=== PATIENT | female | born 2000 | race Two or more races ===

== ENCOUNTER → 2020-10-19 | Outpatient (CLI) | payer OTHER ==
[~2020-10-19] MED LIST: NORG1TAB37 PO
== END ==
LOC: M LABSMTC 11:47
PROVIDERS: ATTEND Pediatrics
DX: Z20.822 Contact with and (suspected) exposure to COVID-19 (principal)

== ENCOUNTER → 2021-01-05 | Outpatient (CLI) | payer SELFPAY | LOC: M LABSMTC 13:26 | PROVIDERS: ATTEND Pediatrics | DX: Z20.822 Contact with and (suspected) exposure to COVID-19 (principal) ==

== ENCOUNTER → 2023-07-29 | Outpatient (CLI) | payer OTHER | LOC: M WUC 14:55 | PROVIDERS: ATTEND Registered Nurse | DX: M25.562 Pain in left knee (principal) ==

== ENCOUNTER → 2025-06-02 | Outpatient (REF) | LOC: M EMP 11:50 | PROVIDERS: ATTEND Family Medicine | DX: Z11.52 Encounter for screening for COVID-19 (principal) ==